=== PATIENT | male | born 1930 | race Caucasian/White ===

== ENCOUNTER → 2018-04-22 | Outpatient (CLI) | payer MEDICARE, OTHER | END | disposition home or self-care (01) | LOC: PCVCCLINIC 14:59 | PROVIDERS: ATTEND Internal Medicine | DX: I25.10 Atherosclerotic heart disease of native coronary artery without angina pectoris (principal); R93.1 Abnormal findings on diagnostic imaging of heart and coronary circulation; I10 Essential (primary) hypertension; E78.5 Hyperlipidemia, unspecified; G47.33 Obstructive sleep apnea (adult) (pediatric); Z86.73 Personal history of transient ischemic attack (TIA), and cerebral infarction without residual deficits; Z87.891 Personal history of nicotine dependence; Z72.89 Other problems related to lifestyle | CPT/HCPCS: 36415; 80061; 93005; G0463 ==

== ENCOUNTER → 2018-04-28 | Outpatient (CLI) | payer MEDICARE, OTHER ==
--- NOTE | 2018-04-28 16:19 | PCVCIMAG ---
APPROVED REPORT Indications Bruit Risk Factors TIA/CVA History Doppler Spectral Velocity Analysis PSV / EDVPSV / EDV ECA (R) 77 / 12 cm/sECA (L) 77 / 3 cm/s dICA (R) 57 / 12 cm/sdICA (L) 34 / 10 cm/s Precious (R) 72 / 18 cm/smICA (L) 64 / 11 cm/s pICA (R) 82 / 12 cm/spICA (L) 119 / 19 cm/s Bulb (R) 69 / 16 cm/sBulb (L) 85 / 13 cm/s dCCA (R) 79 / 10 cm/sdCCA (L) 120 / 10 cm/s mCCA (R) 82 / 10 cm/smCCA (L) 124 / 18 cm/s Vert (R) 76 / 9 cm/sVert (L) 56 / 11 cm/s ICA/CCA 1.04ICA/CCA 0.99 Basic Measurements Blood Pressure: Pulses: Right Left RightLeft Brachial(Sitting) 142/85ubEt812/74mmHgTemporal Real Time B-Mode Imaging Vert. (R)AntegradeVert. (L)Antegrade Findings The right carotid bulb has mild plaque. The right proximal internal carotid artery shows no significant stenosis. The right common carotid artery shows no significant stenosis. The right external carotid artery shows no significant stenosis. The left carotid bulb has moderate plaque. The left proximal internal carotid artery shows <40% stenosis. The left common carotid artery shows no significant stenosis. The left external carotid artery shows no significant stenosis. Conclusion 1. Right internal carotid artery mild plaquing without significant stenosis 2. Left internal carotid artery stenosis (<40%) 3. Antegrade vertebral flow
== END | disposition home or self-care (01) ==
LOC: PCVCIMAG 15:21
PROVIDERS: ATTEND Internal Medicine
DX: I65.23 Occlusion and stenosis of bilateral carotid arteries (principal); R09.89 Other specified symptoms and signs involving the circulatory and respiratory systems
CPT/HCPCS: 93880

== ENCOUNTER → 2018-05-10 | Outpatient (CLI) | payer MEDICARE, OTHER ==
--- NOTE | 2018-05-10 17:28 | PCVCIMAG ---
APPROVED REPORT Study performed: 05/10/2018 14:46:38 EXAM: Comprehensive 2D, Doppler, and color-flow Echocardiogram Patient Location: Echo lab Room #: 2Status: routine BSA: 2.00 HR: 48 bpmBP: 170/82 mmHg Rhythm: Bradycardia Other Information Study Quality: Adequate Risk Factors: Cardiac Risk Factors: HTN, Hyperlipidemia Indications CVA/TIA CAD Hypertension/HDD Coronary calcium 1686 2D Dimensions IVSd: 8.73 (7-11mm)LVOT Diam: 21.74 (18-24mm) LVDd: 57.57 mm PWd: 9.41 (7-11mm)Ascending Ao: 35.94 (22-36mm) LVDs: 38.89 (25-40mm) Left Atrium: 41.31 (27-40mm) Aortic Root: 25.64 mm LV Single Plane 4CH: 59.15 % LV Single Plane 2CH: 46.97 % Biplane EF: 53.5 % Volumes Left Atrial Volume (Systole) Single Plane 4CH: 71.75 mLSingle Plane 2CH: 74.67 mL Biplane LA Volume: 76.00 mLLA ESV Index: 38.00 mL/m2 Aortic Valve AoV Peak Wilton.: 1.72 m/s AO Peak Gr.: 14.10 mmHgLVOT Max P.08 mmHg AO Mean Gr.: 7.22 mmHgLVOT Mean P.07 mmHg AO V2 Mean: 1.28 m/sLVOT Max V: 1.04 m/s AO V2 VTI: 45.03 cmLVOT Mean V: 0.84 m/s JERRY (VTI): 2.45 fi5BCTP V1 VTI: 29.71 cm JERRY Vmax: 2.23 cm2 AI Vmax: 4.12 m/sSV (LVOT): 110.19 mL AI Mclean: 1.81 m/s2 AI PHT: 658.04 ms Mitral Valve E/A Ratio: 1.5 MV Decel. Time: 143.71 ms MV E Max Wilton.: 0.81 m/s MV A Wilton.: 0.55 m/s TDI E/Lateral E': 16.20E/Medial E': 20.25 Medial E' Wilton.: 0.04 m/s Lateral E' Wilton.: 0.05 m/s Pulmonary Valve PV Peak Gr.: 1.78 mmHg Pulmonary Vein P Vein S: 0.50 m/sP Vein A: 0.24 m/s P Vein D: 0.50 m/sP Vein A Dur.: 101.5 msec P Vein S/D Ratio: 1.00 Tricuspid Valve TR Peak Wilton.: 1.97 m/s TR Peak Gr.: 15.50 mmHg TV Vmax: 0.50 m/sPA Pressure: 26.00 mmHg Left Ventricle Left ventricle is at the upper limits of normal. There is normal LV segmental wall motion. There is normal left ventricular wall thickness. Left ventricular systolic function is normal. The left ventricular ejection fraction is within the normal range. LVEF is 50-55%. Findings suggest the left atrial pressure is elevated. Right Ventricle The right ventricle is normal size. The right ventricular systolic function is normal. Atria Left atrium is mildly dilated. The right atrium size is normal. Aortic Valve Aortic valve is trileaflet, mildly calcified. Mild aortic regurgitation. There is no aortic valvular stenosis. Mitral Valve Minimal mitral annular calcification Mild mitral regurgitation. No evidence of mitral valve stenosis. Tricuspid Valve The tricuspid valve is normal in structure. Trace tricuspid regurgitation. Pulmonic Valve The pulmonary valve is normal in structure. There is no pulmonic valvular regurgitation. Great Vessels The aortic root is normal in size. The ascending aorta is normal in size. IVC is normal in size and collapses <50% with inspiration. Pericardium There is no pericardial effusion. There is no pleural effusion. <Conclusion> Left ventricular systolic function is normal. There is normal LV segmental wall motion. LVEF 55%. Left atrium is mildly dilated. Aortic valve is trileaflet, mildly calcified. Mild aortic regurgitation, no stenosis. Minimal mitral annular calcification. Mild mitral regurgitation. Pulmonary artery pressure could not be relialby ascertained There is no pericardial effusion.
== END | disposition home or self-care (01) ==
LOC: PCVCIMAG 15:00
PROVIDERS: ATTEND Internal Medicine
DX: I08.0 Rheumatic disorders of both mitral and aortic valves (principal); I25.10 Atherosclerotic heart disease of native coronary artery without angina pectoris; I10 Essential (primary) hypertension; I63.9 Cerebral infarction, unspecified; R93.1 Abnormal findings on diagnostic imaging of heart and coronary circulation
CPT/HCPCS: 93306

== ENCOUNTER → 2019-03-14 | Outpatient (CLI) | payer MEDICARE, OTHER | END | disposition home or self-care (01) | LOC: PCVCCLINIC 16:02 | PROVIDERS: ATTEND Internal Medicine | DX: Z48.812 Encounter for surgical aftercare following surgery on the circulatory system (principal); I10 Essential (primary) hypertension; E78.5 Hyperlipidemia, unspecified; G47.33 Obstructive sleep apnea (adult) (pediatric); M81.0 Age-related osteoporosis without current pathological fracture; G47.30 Sleep apnea, unspecified; Z95.0 Presence of cardiac pacemaker; Z86.73 Personal history of transient ischemic attack (TIA), and cerebral infarction without residual deficits; Z87.891 Personal history of nicotine dependence | CPT/HCPCS: 93280 ==